=== PATIENT | female | born 1970 | race Caucasian/White ===

== ENCOUNTER → 2017-12-03 14:05 | Outpatient (POV) | payer BC, SELFPAY ==
[2017-12-03 14:19] VITALS: BP 109/54; PULSE 92; RESP 15; O2SAT 99; BMI 21.9
--- NOTE | 2017-12-03 15:25 | HMH.PAINSOAP ---
[facility] Pain Management SOAP Note Subjective:: Patient is a pleasant 47-year-old white female who presents today for medication refills. Patient is being treated for pain secondary to low back pain and lumbar radiculopathy. Patient also has lumbar spondylosis. Patient has had injections in the past with not a lot of relief. She was on gabapentin 300 mg 4 times daily however she has been having quite a bit of side effects including disorientation and confusion. Patient is unable to go up higher in dosage. Patient is working full-time at the post office. Patient is interested in other ways of taking care of her pain. Patient's Kasperr #[id number] reviewed and appropriate. Rates her pain a 6 out of 10 today. Patient says resting does decrease it some however it is never fully alleviated. ROS General: no recent weight change, no fever, difficulty sleeping Respiratory: no cough, no shortness of air, no recurring pulmonary infections Cardiovascular/Peripheral Vascular: No chest pain, No palpitations, no edema, no shortness of breath. Gastrointestinal: no incontinence, normal bowel movements reported Genitourinary: no incontinence Musculoskeletal: Back pain and leg pain Psychiatric: normal mood/ affect Neurological: [denies weakness in extremities], [denies balance issues] Objective:: Physical Exam General: Alert and oriented x3, no acute distress, pleasant and cooperative, [on room air] Lungs: Resps E/U, Symmetrical chest expansion, Eyes: PERRL Musculoskeletal: Flexion and extension of lumbar spine somewhat guarded secondary to pain, deep tendon reflexes normal, strength in upper and lower extremities [5/5], slightly antalgic gait noted Neurological: speech clear, model maker scale equal, no gross sensory deficits Assessment:: Degenerative disc disease of the lumbar spine with lumbar radiculopathy and lumbar spondylosis Plan:: We will change his patient's medication to Lyrica 75 mg 1 p.o. twice daily. We will start her on a two-week course and see if this is helpful. Due to the fact that the patient has tried and failed gabapentin. Patient also will try Flector patches and see if this helps as well. Patient's [place] #[id number] reviewed and appropriate. Dr. Topete has reviewed this chart and agrees with this plan. We will see the patient back in 2 months. This note was dictated using voice or condition software and may contain errors or omissions
--- NOTE | 2017-12-03 15:29 | P.CONS_ITS ---
[facility] Pain Management SOAP Note Subjective:: Patient is a pleasant 47-year-old white female who presents today for medication refills. Patient is being treated for pain secondary to low back pain and lumbar radiculopathy. Patient also has lumbar spondylosis. Patient has had injections in the past with not a lot of relief. She was on gabapentin 300 mg 4 times daily however she has been having quite a bit of side effects including disorientation and confusion. Patient is unable to go up higher in dosage. Patient is working full-time at the post office. Patient is interested in other ways of taking care of her pain. Patient's Kasperr # [id number] reviewed and appropriate. Rates her pain a 6 out of 10 today. Patient says resting does decrease it some however it is never fully alleviated. ROS General: no recent weight change, no fever, difficulty sleeping Respiratory: no cough, no shortness of air, no recurring pulmonary infections Cardiovascular/Peripheral Vascular: No chest pain, No palpitations, no edema, no shortness of breath. Gastrointestinal: no incontinence, normal bowel movements reported Genitourinary: no incontinence Musculoskeletal: Back pain and leg pain Psychiatric: normal mood/ affect Neurological: [denies weakness in extremities], [denies balance issues] Objective:: Physical Exam General: Alert and oriented x3, no acute distress, pleasant and cooperative, [ on room air] Lungs: Resps E/U, Symmetrical chest expansion, Eyes: PERRL Musculoskeletal: Flexion and extension of lumbar spine somewhat guarded secondary to pain, deep tendon reflexes normal, strength in upper and lower extremities [5/5], slightly antalgic gait noted Neurological: speech clear, silo painter equal, no gross sensory deficits Assessment:: Degenerative disc disease of the lumbar spine with lumbar radiculopathy and lumbar spondylosis Plan:: We will change his patient's medication to Lyrica 75 mg 1 p.o. twice daily. We will start her on a two-week course and see if this is helpful. Due to the fact that the patient has tried and failed gabapentin. Patient also will try Flector patches and see if this helps as well. Patient's [place] #[id number] reviewed and appropriate. Dr. Topete has reviewed this chart and agrees with this plan. We will see the patient back in 2 months. This note was dictated using voice or condition software and may contain errors or omissions
--- NOTE | 2017-12-05 08:06 | PC.PHONENOTE ---
12/03/17-called in RX for Flector patch qday wiht 2 refills and Lyrica 75mg BID x14 days to pt pharmacy
== END ==
PROVIDERS: Family Provider Internal Medicine Adolescent Medicine; PCP Internal Medicine Adolescent Medicine; Visit Provider Clinical Nurse Specialist Family Health
DX: M54.16 Radiculopathy, lumbar region (principal)
CPT/HCPCS: 99212

== ENCOUNTER → 2018-01-15 08:41 | Outpatient (POV) | payer BC, SELFPAY ==
[2018-01-15 09:13] VITALS: BP 123/72; PULSE 91; RESP 18; TEMP 36.6; O2SAT 99; BMI 22.8
--- NOTE | 2018-01-15 09:17 | HMH.PAINSOAP ---
[facility] Pain Management SOAP Note Subjective:: Patient is a pleasant 47-year-old white female since today to discuss her medication. Patient was on gabapentin recently however she was having quite a few side effects. We tried Lyrica for 2 weeks she did not get any relief from this. Also it is very cost prohibitive. She rates her pain a 7 out of 10 today. She is having a lot of difficulty sleeping. Patient has not tried amitriptyline. Patient and I discussed potentially Cymbalta or amitriptyline. Patient's ROVERTO #[id number] reviewed and appropriate. Patient is working full-time at the post office. Patient is interested in continuing working and keeping her pain under control. Her biggest concern is sleeping at night. ROS General: no recent weight change, no fever, no sleep disturbances Respiratory: no cough, no shortness of air, no recurring pulmonary infections Cardiovascular/Peripheral Vascular: No chest pain, No palpitations, no edema, no shortness of breath. Gastrointestinal: no incontinence, normal bowel movements reported Genitourinary: no incontinence Musculoskeletal: Back pain, leg pain Psychiatric: normal mood/ affect Neurological: [denies weakness in extremities], [denies balance issues] Objective:: Physical Exam General: Alert and oriented x3, no acute distress, pleasant and cooperative, [on room air] Lungs: Resps E/U, Symmetrical chest expansion, Eyes: PERRL Musculoskeletal: Flexion and extension of bar spine somewhat guarded secondary to pain, deep tendon reflexes normal, strength in upper and lower extremities [5/5], slightly antalgic gait noted Neurological: speech clear, rocket propellant plant supervisor equal, no gross sensory deficits Assessment:: Degenerative disc disease of the lumbar spine with lumbar radiculopathy and lumbar spondylosis Plan:: We will call in amitriptyline 25 mg 1 p.o. nightly we will also call in tramadol 50 mg 1 tab p.o. twice daily. Follow-up with this patient in 2 weeks and we will determine if this treatment helps. Patient has had epidurals in the past with some relief however it is not long-term in nature. I believe it is important that the patient continues to work. This note was dictated using voice recognition software and may contain errors or omissions
--- NOTE | 2018-01-15 09:20 | P.CONS_ITS ---
[facility] Pain Management SOAP Note Subjective:: Patient is a pleasant 47-year-old white female since today to discuss her medication. Patient was on gabapentin recently however she was having quite a few side effects. We tried Lyrica for 2 weeks she did not get any relief from this. Also it is very cost prohibitive. She rates her pain a 7 out of 10 today. She is having a lot of difficulty sleeping. Patient has not tried amitriptyline. Patient and I discussed potentially Cymbalta or amitriptyline. Patient's ROVERTO #[id number] reviewed and appropriate. Patient is working full- time at the post office. Patient is interested in continuing working and keeping her pain under control. Her biggest concern is sleeping at night. ROS General: no recent weight change, no fever, no sleep disturbances Respiratory: no cough, no shortness of air, no recurring pulmonary infections Cardiovascular/Peripheral Vascular: No chest pain, No palpitations, no edema, no shortness of breath. Gastrointestinal: no incontinence, normal bowel movements reported Genitourinary: no incontinence Musculoskeletal: Back pain, leg pain Psychiatric: normal mood/ affect Neurological: [denies weakness in extremities], [denies balance issues] Objective:: Physical Exam General: Alert and oriented x3, no acute distress, pleasant and cooperative, [ on room air] Lungs: Resps E/U, Symmetrical chest expansion, Eyes: PERRL Musculoskeletal: Flexion and extension of bar spine somewhat guarded secondary to pain, deep tendon reflexes normal, strength in upper and lower extremities [5 /5], slightly antalgic gait noted Neurological: speech clear, venetian blind cleaner equal, no gross sensory deficits Assessment:: Degenerative disc disease of the lumbar spine with lumbar radiculopathy and lumbar spondylosis Plan:: We will call in amitriptyline 25 mg 1 p.o. nightly we will also call in tramadol 50 mg 1 tab p.o. twice daily. Follow-up with this patient in 2 weeks and we will determine if this treatment helps. Patient has had epidurals in the past with some relief however it is not long-term in nature. I believe it is important that the patient continues to work. This note was dictated using voice recognition software and may contain errors or omissions
== END ==
PROVIDERS: Family Provider Internal Medicine Adolescent Medicine; PCP Internal Medicine Adolescent Medicine; Visit Provider Clinical Nurse Specialist Family Health
DX: M47.26 Other spondylosis with radiculopathy, lumbar region (principal)
CPT/HCPCS: 99212

== ENCOUNTER → 2018-01-28 10:41 | Outpatient (POV) | payer BC, SELFPAY ==
[2018-01-28 11:02] VITALS: BP 130/76; PULSE 103; RESP 20; TEMP 36.8; O2SAT 98; BMI 21.5
--- NOTE | 2018-01-28 11:23 | HMH.PAINSOAP ---
[facility] Pain Management SOAP Note Subjective:: Patient is a pleasant 47-year-old white female who presents today to discuss how she is doing on her current regimen of amitriptyline and tramadol. Patient states she is doing well with amitriptyline and denies any side effects. She states that she is able to sleep much better at nighttime. Patient states the tramadol has little effect on her pain however she is recently exacerbated her back pain due to carrying a sleeping child for several hours. 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 Patient is interested in injective therapy to help relieve her new increase in pain. Patient states the pain is in her mid spine and does not radiate. Patient states that twisting motion makes it worse. ROS General: no recent weight change, no fever, no sleep disturbances Respiratory: no cough, no shortness of air, no recurring pulmonary infections Cardiovascular/Peripheral Vascular: No chest pain, No palpitations, no edema, no shortness of breath. Gastrointestinal: no incontinence, normal bowel movements reported Genitourinary: no incontinence Musculoskeletal: Back pain Psychiatric: normal mood/ affect Neurological: [denies weakness in extremities], [denies balance issues] Objective:: Physical Exam General: Alert and oriented x3, no acute distress, pleasant and cooperative, [on room air] Lungs: Resps E/U, Symmetrical chest expansion, Eyes: PERRL Musculoskeletal: Flexion and extension of thoracic and lumbar spine somewhat guarded secondary to pain, deep tendon reflexes normal, strength in upper and lower extremities [5/5], slightly antalgic gait noted, positive facet loading of thoracic spine Neurological: speech clear, sleeve ironer equal, no gross sensory deficits Assessment:: Thoracic spondylosis, lumbar spondylosis, degenerative disc disease of the lumbar spine Plan:: We will plan a medial branch block/facet joint injection of T11-T12 and T12-L1 bilaterally. Patient has tried steroids, medications, anti-inflammatories. Patient is trying to do home stretching. Patient had injective therapy in the past with some relief. I believe that this would be beneficial for her given her symptomology. We will also: Zanaflex 4 mg 1 tab p.o. 3 times daily and amitriptyline 25 mg 1 tab p.o. nightly along with tramadol 100 mg twice daily. Patient's ROVERTO #[id number] reviewed. Dr. Topete has reviewed this chart and agrees with this plan of care. I will follow-up with the patient after her injections. This note was dictated using voice recognition software and may contain errors or omissions
--- NOTE | 2018-01-28 11:26 | P.CONS_ITS ---
[facility] Pain Management SOAP Note Subjective:: Patient is a pleasant 47-year-old white female who presents today to discuss how she is doing on her current regimen of amitriptyline and tramadol. Patient states she is doing well with amitriptyline and denies any side effects. She states that she is able to sleep much better at nighttime. Patient states the tramadol has little effect on her pain however she is recently exacerbated her back pain due to carrying a sleeping child for several hours. 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 Patient is interested in injective therapy to help relieve her new increase in pain. Patient states the pain is in her mid spine and does not radiate. Patient states that twisting motion makes it worse. ROS General: no recent weight change, no fever, no sleep disturbances Respiratory: no cough, no shortness of air, no recurring pulmonary infections Cardiovascular/Peripheral Vascular: No chest pain, No palpitations, no edema, no shortness of breath. Gastrointestinal: no incontinence, normal bowel movements reported Genitourinary: no incontinence Musculoskeletal: Back pain Psychiatric: normal mood/ affect Neurological: [denies weakness in extremities], [denies balance issues] Objective:: Physical Exam General: Alert and oriented x3, no acute distress, pleasant and cooperative, [ on room air] Lungs: Resps E/U, Symmetrical chest expansion, Eyes: PERRL Musculoskeletal: Flexion and extension of thoracic and lumbar spine somewhat guarded secondary to pain, deep tendon reflexes normal, strength in upper and lower extremities [5/5], slightly antalgic gait noted, positive facet loading of thoracic spine Neurological: speech clear, machine engraver equal, no gross sensory deficits Assessment:: Thoracic spondylosis, lumbar spondylosis, degenerative disc disease of the lumbar spine Plan:: We will plan a medial branch block/facet joint injection of T11-T12 and T12-L1 bilaterally. Patient has tried steroids, medications, anti-inflammatories. Patient is trying to do home stretching. Patient had injective therapy in the past with some relief. I believe that this would be beneficial for her given her symptomology. We will also: Zanaflex 4 mg 1 tab p.o. 3 times daily and amitriptyline 25 mg 1 tab p.o. nightly along with tramadol 100 mg twice daily. Patient's ROVERTO #[id number] reviewed. Dr. Topete has reviewed this chart and agrees with this plan of care. I will follow-up with the patient after her injections. This note was dictated using voice recognition software and may contain errors or omissions
--- NOTE | 2018-01-29 14:27 | PC.PHONENOTE ---
01/28/18-called in Rx for Tramadol 100mg BID with 2 refills, Zanaflex 4mg TID with 2 refills, and Amitriptyline 25mg qhs with 1 refill per provider order.
== END ==
PROVIDERS: Family Provider Internal Medicine Adolescent Medicine; PCP Internal Medicine Adolescent Medicine; Visit Provider Clinical Nurse Specialist Family Health
DX: M47.816 Spondylosis without myelopathy or radiculopathy, lumbar region (principal); M47.814 Spondylosis without myelopathy or radiculopathy, thoracic region
CPT/HCPCS: 99212

== ENCOUNTER 2018-02-25 13:30 | Outpatient (RCR) | payer BC, SELFPAY | END 2018-03-18 10:45 | disposition home or self-care (01) | LOC: PT 13:30 | PROVIDERS: Family Provider Internal Medicine Adolescent Medicine; PCP Internal Medicine Adolescent Medicine; Visit Provider Nurse Practitioner Family | DX: M54.6 Pain in thoracic spine (principal) | CPT/HCPCS: 97033; 97110; 97140; 97163 ==

== ENCOUNTER → 2018-11-05 13:56 | Outpatient (CLI) | payer BC, SELFPAY ==
--- NOTE | 2018-11-05 14:02 | XR_ITS ---
XR chest 2V HISTORY: ITS.REASON: COUGH ORDERING PHYSICIAN: Zoey Loera PATIENT AGE: 48 years COMPARISON: None FINDINGS: The cardiomediastinal silhouette and pulmonary vascularity are within normal limits. There is consolidation in the right middle lobe anteriorly consistent with pneumonia. Calcified granuloma is present in the left upper lobe. Coarse calcification involving the humeral head on the right consistent with bone infarction.. No acute bony abnormalities. IMPRESSION: Right middle lobe pneumonia. Recommend follow-up until clear as there is a somewhat lobular contour to the pneumonia
[2018-11-05 14:57] LABS: Basophils # 0.1 K/mm3 (0-0.2); Basophils % 0.5 % (0.1-2.0); Eosinophils # 0.1 K/mm3 (0.0-0.4); Eosinophils % 0.9 % (0.1-12.0); Hematocrit 39.2 % (37.0-47.0); Hemoglobin 12.2 g/dL (12.2-16.2); Lymphocytes # 1.8 K/mm3 (0.7-4.5); Lymphocytes % 15.7 % (10-50); Mean Corpuscular HGB Conc 31.2 g/dL (31.8-35.4); Mean Corpuscular Hemoglobin 29.2 pg (27.0-31.2); Mean Corpuscular Volume 93.7 fl (81-99); Mean Platelet Volume 6.5 fl (7.4-10.4); Monocytes # 0.6 K/mm3 (0.1-1.0); Neutrophils % 77.8 % (37.0-80.0); Platelet Count 431 K/mm3 (142-424); Red Blood Count 4.18 M/mm3 (4.20-5.40); Red Cell Distribution Width 13.3 % (11.5-17.5); White Blood Count 11.6 K/mm3 (4.8-10.8)
[2018-11-05 16:13] LABS: Alanine Aminotransferase 26 U/L (12-78); Albumin Level 3.1 gm/dL (3.4-5.0); Albumin/Globulin Ratio 0.9 (1.1-1.8); Alkaline Phosphatase 162 U/L (46-116); Anion Gap 11.1 mEq/L (5-15); Aspartate Amino Transferase 23 U/L (15-37); Bilirubin,Total 0.2 mg/dL (0.2-1.0); Blood Urea Nitrogen 11 mg/dL (7-18); Carbon Dioxide 31 mmol/L (21.0-32.0); Chloride 100 mmol/L (98-107); Creatinine,Serum 0.51 mg/dL (0.55-1.02); Estimated Glomerular Filt Rate 128 ml/min (>60); GFR (African American) 154 ML/MIN (>60); Globulin 3.4 gm/dl (1.3-3.2); Glucose 102 mg/dL (74-106); Potassium 4.1 mmoL/L (3.5-5.1); Sodium 138 mmol/L (136-145); Thyroid Stimulating Hormone 0.55 uIU/ml (0.358-3.740); Total Protein,Serum 6.5 gm/dL (6.4-8.2)
== END ==
PROVIDERS: PCP Nurse Practitioner Family; Visit Provider Nurse Practitioner Family
DX: R05 Cough (principal); R63.4 Abnormal weight loss
CPT/HCPCS: 36415; 71046; 80053; 84443; 85025

== ENCOUNTER → 2018-11-14 12:05 | Outpatient (CLI) | payer BC, SELFPAY ==
--- NOTE | 2018-11-14 12:11 | XR_ITS ---
XR chest 2V HISTORY: Follow-up pneumonia, cough and congestion ITS.REASON: BRONCHOPNEUMONIA ORDERING PHYSICIAN: Zoey Loera PATIENT AGE: 48 years COMPARISON: None FINDINGS: The cardiomediastinal silhouette and pulmonary vascularity are within normal limits. Consolidation in the right middle lobe has shown some improvement. There is some residual density in the right middle lobe however. Recommend follow-up until clear is a remains some nodular contour in the infiltrate inferiorly. IMPRESSION: Persistent but improving right middle lobe pneumonia.
== END ==
PROVIDERS: PCP Nurse Practitioner Family; Visit Provider Nurse Practitioner Family
DX: J18.0 Bronchopneumonia, unspecified organism (principal)
CPT/HCPCS: 71046

== ENCOUNTER → 2018-11-29 09:58 | Outpatient (CLI) | payer BC, SELFPAY ==
--- NOTE | 2018-11-29 10:02 | XR_ITS ---
XR chest 2V HISTORY: ITS.REASON: BRONCHOPNEUMONIA ORDERING PHYSICIAN: Zoey Loera PATIENT AGE: 48 years COMPARISON: 11/14/2018 FINDINGS: The cardiomediastinal silhouette and pulmonary vascularity are within normal limits. The lungs are clear without infiltrates, suspicious nodules, or pleural effusions. No acute bony abnormalities. IMPRESSION: Negative chest, no acute finding There is been clearing of the right middle lobe pneumonia
== END ==
PROVIDERS: PCP Nurse Practitioner Family; Visit Provider Nurse Practitioner Family
DX: J18.0 Bronchopneumonia, unspecified organism (principal)
CPT/HCPCS: 71046

== ENCOUNTER 2020-07-13 20:26 | Emergency (ER) | payer BC, SELFPAY ==
[2020-07-13 20:35] VITALS: BP 123/60; PULSE 71; RESP 18; TEMP 36.8; O2SAT 99; BMI 17.5
--- NOTE | 2020-07-13 20:53 | HMH.EDUTC ---
[facility] [place] Clinical Impression: Exposure to COVID-19 virus Disposition: Home, Self-Care Condition on Discharge: Good Instructions: Preventing the Spread of Coronavirus Discharge Instructions Additional Instructions: Drink plenty of fluids. Take tylenol or ibuprofen for pain or fever. Follow up with your regular doctor. GO TO THE ER FOR ANY WORSENING SYMPTOMS FOLLOW THE DIRECTIONS ON THE COVID-19 HAND OUT THAT WE GAVE YOU REGARDING SELF-ISOLATION UNTIL YOU KNOW YOUR COVID-19 RESULTS Referrals: Zoey Loera [Primary Care Provider] - Time of Disposition: 21:01 Medical Decision Making - Medical Records Medical records reviewed: No: I reviewed the patient's medical records. - Sven Inquiry Pt receiving controlled substance: No Vital Signs: 07/13/20 20:35 07/13/20 20:57 Temperature 98.2 F 98.2 F Temperature Source Oral Pulse Rate 71 Pulse Rate [Right Brachial] 71 Respiratory Rate 18 18 Blood Pressure 123/60 Blood Pressure [Right Arm] 123/60 Blood Pressure Mean [Right Arm] 81 Blood Pressure Source [Right Arm] Automatic Cuff Blood Pressure Position [Right Arm] Sitting 02 Sat by Pulse Oximetry 99 Oxygen Delivery Method Room Air Orders (Tests/Meds): ORDERS Category Date Time Status Covid-19 Nasal PCR ([facility]) Routine Lab 07/13/20 20:32 [place] [facility] - General Stated complaint: WANTS COVID TESTING Time Seen by Provider: 07/13/20 20:59 Mode of Arrival: Ambulatory Source of Information: Patient Limitations: No Limitations Description of Symptoms (Recalled from Triage Doc. by RN): PATIENT REQUESTING TO BE TESTED FOR COVID. SHE STATES HER GRANDDAUGHTER WAS EXPOSED AND SHE WAS AROUND HER GRANDDAUGHTER. DENIES SYMPTOMS OR ANY DIRECT CONTACT HEENT Symptoms (Recalled from RN notes): No Resp Symptoms (Recalled from RN notes): No Skin Symptoms (Recalled from RN notes): No MS Symptoms (Recalled from RN notes): No Functional Status (Recalled from RN notes): WNL - History of Present Illness Provider Complaint: She states that her grand daughter has tested positive for covid. 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 - Related Data Home Medications Medication Instructions Recorded Confirmed Hydrocodone/Acetaminophen 1 each PO NEEDED PRN 10/22/18 10/22/18 [Hydrocodone-Acetamin 5-325 mg] Nortriptyline HCl [Pamelor] 25 mg PO DAILY 10/22/18 10/22/18 Allergies Allergy/AdvReac Type Severity Reaction Status Date / Time No Known Allergies Allergy Verified 10/28/18 11:45 - Worker's Comp Is this a Worker's Comp case?: No [facility] History - Hepatitis A Screen Drug use history?: No High risk sexual behaviors?: No History of sexually transmitted infection?: No Currently employed?: No Childcare worker?: No Do you have indoor plumbing?: Yes Do you have electricity?: Yes Attestation statement:: This patient has been screened for Hepatitis A risk factors. I have reviewed the patient's past medical history: Yes Medical History: Reports:: Gastroesophageal Reflux Disease(GERD), Lung Disease (smoker) Denies:: Diabetes Mellitus Type 1, Diabetes Mellitus Type 2, Internal Pacemaker, Seizures Other Medical History: Denies: Blood Transfusion Reaction Other Surgeries: No: Pacemaker - Social History Alcohol Intake: never Occupational Status: other ROS Obtained: Yes All systems reviewed & no additional complaints - Constitutional Constitutional: Denies chills, Denies fever(s) - Eyes Eyes: Denies eye discharge - ENT Ears, Nose, Mouth, and Throat: Denies dizziness, Denies otalgia, Denies sore throat - Cardiovascular Cardiovascular: Denies chest pain - Respiratory Respiratory: No chest congestion, No cough - Gastrointestinal Gastrointestingal: Denies: diarrhea, nausea, vomiting Physical Exam - General General appearance: alert, in no apparent distress - Head Head exam: atraumatic, normocephalic, normal inspection - Eye Eye exam: Presen
[2020-07-13 20:57] VITALS: BP 123/60; PULSE 71; RESP 18; TEMP 36.8; O2SAT 99
== END 2020-07-13 21:00 | disposition home or self-care (01) ==
PROVIDERS: Emergency Provider Nurse Practitioner Family; PCP Nurse Practitioner Family
DX: Z20.828 Contact with and (suspected) exposure to other viral communicable diseases (principal); K21.9 Gastro-esophageal reflux disease without esophagitis; F17.210 Nicotine dependence, cigarettes, uncomplicated
CPT/HCPCS: 99201; U0003

== ENCOUNTER → 2020-07-19 12:09 | Outpatient (CLI) | payer BC, SELFPAY | PROVIDERS: PCP Nurse Practitioner Family; Visit Provider Nurse Practitioner Family | DX: Z03.818 Encounter for observation for suspected exposure to other biological agents ruled out (principal) | CPT/HCPCS: U0003 ==

== ENCOUNTER 2024-07-01 15:21 | Outpatient (CLI) | payer BC, SELFPAY ==
--- NOTE | 2024-07-01 15:26 | XR_ITS ---
FINAL REPORT TECHNIQUE: 5 views CLINICAL HISTORY: SPONDYLOSIS COMPARISON: None FINDINGS: LUMBAR SPINE: There is no fracture present. There is no malalignment. Moderate degenerative disc disease is present. IMPRESSION: Moderate degenerative disc disease without acute bony abnormality. Reviewed, Interpreted and Dictated by Lisa Moraes MD Transcribed by Ingrid Roa Authenticated and [facility]
== END 2024-07-01 23:59 | disposition home or self-care (01) ==
PROVIDERS: PCP Nurse Practitioner Family; Visit Provider Anesthesiology
DX: M47.9 Spondylosis, unspecified (principal)
CPT/HCPCS: 72110